=== PATIENT | male | born 1965 | race Caucasian/White ===

== ENCOUNTER 2016-11-26 17:11 | Inpatient (IN) | payer OTHER ==
[2016-11-26 19:49] VITALS: BP 148/69; PULSE 69; RESP 16; TEMP 97.6; O2SAT 99
--- NOTE | 2016-11-26 20:33 | PD ---
HPI Chief Complaint: Psychiatric Symptoms Time Seen by Provider: 20:33 Travel History International Travel<30 days: No Contact w/Intl Traveler<30days: No Traveled to known affect area: No History of Present Illness HPI 51-year-old male with history of epilepsy and hypertension, presents to the emergency department under a Goldman act for psychiatric evaluation. Per report, patient has been caring for his mother. He has been experiencing some financial difficulty. This has trickled into his work and his work has been less than adequate. He was written out and had a meeting today about this. Patient stated that he responded "don't fire me. I might as well just kill myself." This resulted in the patient being placed under a Goldman act. And asked if he is suicidal, the patient tells me if he does get fired he might as well just kill himself. States his mother will move out and he will lose everything. He denies any acute medical needs at this time. States that he takes his medication as directed. He has no other symptoms to report. PFSH Past Medical History Seizures: Yes Social History Alcohol Use: No Tobacco Use: No Substance Use: No Allergies-Medications (Allergen,Severity, Reaction): Coded Allergies: No Known Allergies (Unverified , 11/26/16) Review of Systems Except as stated in HPI: all other systems reviewed are Neg Physical Exam Narrative GENERAL: Obese male patient, tearful but in no acute distress SKIN: Focused skin assessment warm/dry. HEAD: Atraumatic. Normocephalic. EYES: Pupils equal and round. No scleral icterus. No injection or drainage. ENT: No nasal bleeding or discharge. Mucous membranes pink and moist. NECK: Trachea midline. No JVD. CARDIOVASCULAR: Regular rate and rhythm. No murmur appreciated. RESPIRATORY: No accessory muscle use. Clear to auscultation. Breath sounds equal bilaterally. GASTROINTESTINAL: Abdomen soft, non-tender, nondistended. Hepatic and splenic margins not palpable. MUSCULOSKELETAL: No obvious deformities. No clubbing. No cyanosis. No edema. NEUROLOGICAL: Awake and alert. No obvious cranial nerve deficits. Motor grossly within normal limits. Normal speech. Data Data Last Documented VS Vital Signs Date Time Temp Pulse Resp B/P Pulse Ox O2 Delivery O2 Flow Rate FiO2 11/26/16 19:49 97.6 69 16 148/69 99 Orders Complete Blood Count With Diff (11/26/16 19:43) Basic Metabolic Panel (Bmp) (11/26/16 19:43) Psych Screen (11/26/16 19:43) Drug Screen, Random Urine (11/26/16 19:43) Alcohol (Ethanol) (11/26/16 19:43) Phenytoin (Dilantin) (11/26/16 20:12) Lorazepam Inj (Ativan Inj) (11/26/16 20:45) MDM Medical Decision Making Medical Screen Exam Complete: Yes Emergency Medical Condition: Yes Medical Record Reviewed: Yes Differential Diagnosis Mood disorder versus personality disorder versus adjustment reaction disorder Narrative Course 51-year-old male presents to emergency department under Goldman act for psychiatric evaluation. Patient appears tearful but he is not in distress. His vital signs are stable. Patient does state that if he loses his job he might as well commit suicide. Pending No acute lab abnormality, patient is medically cleared to undergo psychiatric screening for further evaluation and disposition. Mental health screening discussed with the patient. Psychiatric screen ordered. Diagnosis Primary Impression: Adjustment disorder Qualified Code: F43.20 - Adjustment disorder, unspecified type Condition: Daily [place] November 26, 2016 20:33
[2016-11-26] MEDS ORDERED: LORazepam 2 MG/ML VIAL IM ONE (20:45)
[2016-11-26 20:56] VITALS: BP 162/85; PULSE 68; RESP 19; O2SAT 96
[2016-11-26 22:45] VITALS: BP 162/78; PULSE 69; RESP 18; O2SAT 98
[2016-11-26 23:11] LABS: AUTOMATED NEUTROPHIL # 5.8 TH/MM3 (1.8-7.7); BASOPHIL # 0.1 TH/MM3 (0-0.2); BASOPHIL % 1.3 % (0.0-2.0); EOSINOPHIL # 0.4 TH/MM3 (0-0.4); EOSINOPHIL % 4.8 % (0.0-4.0); HEMO FLAGS DIFF FINAL; LYMPH % 21.6 % (9.0-44.0); LYMPHOCYTE # 1.9 TH/MM3 (1.0-4.8); MEAN CELL VOLUME 88.1 FL (80.0-100.0); MEAN CORPUSCULAR HEMOGLOBIN 29.2 PG (27.0-34.0); MEAN CORPUSCULAR HGB CONC 33.1 % (32.0-36.0); MONO % 6.9 % (0.0-8.0); NEUT % 65.4 % (16.0-70.0); PLATELET COUNT 191 TH/MM3 (150-450); RED BLOOD COUNT 4.32 MIL/MM3 (4.50-5.90); RED CELL DISTRIBUTION WIDTH 13.9 % (11.6-17.2); WHITE BLOOD COUNT 8.9 TH/MM3 (4.0-11.0)
[2016-11-26 23:17] LABS: AMPHETAMINE, URINE NEG (NEG); BARBITURATES, URINE NEG (NEG); COCAINE, URINE NEG (NEG)
[2016-11-26 23:34] LABS: BICARBONATE 32.8 MEQ/L (21.0-32.0); BLOOD UREA NITROGEN 12 MG/DL (7-18); GLOMERULAR FILTRATION RATE 89 ML/MIN (>89)
[2016-11-26 23:41] LABS: ANION GAP 7 MEQ/L (5-15); CHLORIDE 102 MEQ/L (98-107); POTASSIUM 3.7 MEQ/L (3.5-5.1); SODIUM (NA) 142 MEQ/L (136-145)
[2016-11-27 02:22] VITALS: BP 160/79; PULSE 63; RESP 18; O2SAT 97
[2016-11-27 06:17] VITALS: BP 165/85; PULSE 65; RESP 19; TEMP 98.7; O2SAT 97
[2016-11-27] MEDS ORDERED: DILA100C PO (07:44)
[2016-11-27] MEDS ORDERED: PHENYTOIN SODIUM 100 MG CAP PO ONE (08:00)
--- NOTE | 2016-11-27 10:30 | PD ---
History of Present Illness Chief Complaint: Psychiatric Symptoms Time Seen by Provider: 09:50 Travel History International Travel<30 Days: No Contact w/Intl Traveler<30days: No Known affected area: No Legal Status Legal Status: Goldman Act Goldman Act Signed By: SUNNY MOREAU Goldman Act Comment: SUICIDAL STATEMENT History of Present Illness: History of Present Illness HPI 51-year-old single male with no previous psychiatric history who presents to the emergency department under a Goldman act for psychiatric evaluation. 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 he also stated " I would do something because my life wouldn't be worth living anymore". EMR is reviewed. no previous contact with [facility] psychiatry dept. Toxicology is negative. Patient is seen . He is alert, oriented male in hospital gown. Hygiene is poor. He appears tired. Speech is clear and logical, slowed at times. There is no psychosis and no basil. Mood is depressed with reported impaired sleep, decreased energy, anhedonia " I sometimes just sit in my room and do nothing", suicidal thoughts with no plan.These symptoms have been occurring for several months. He reports stressors including financial stressors as well as problems at his job. He relates that one week ago he was given a verbal warning from his recreation supervisor. Wednesday of this week he got another warning and a reprimand due to multiple complaints that he was not performing well at his his job. He was advised that he may be fired if his performance did not improve did not improve . Patient acknowledges he is concerned as well as fearful of his future. His mother has threatened to leave him and move away if he looses his job. Patient has no support outside of his mother. He is involved in his sikhism but tells me that he does not feel comfortable talking to anyone in his sikhism regarding his feelings or current situation. He is unable to provide any safety plan in the event that he were to be fired and is vague and ambivalent about formulating any such plan. When he is informed of my concerns adn my recommendation that he be admitted he becomes agitated and tells me " [place] and what do you care if I do anything to myself". PFSH Past Medical History Diminished Hearing: No Seizures: Yes Past Surgical History Surgical History: Unable to Obtain Abdominal Surgery: No Cardiac Surgery: No Ear Surgery: No Endocrine Surgery: No Eye Surgery: No Genitourinary Surgery: No Gynecologic Surgery: No Neurologic Surgery: No Oral Surgery: No Thoracic Surgery: No Other Surgery: No Psychiatric History Psychiatric History Hx Psychiatric Treatment: DENIES any History of Inpatient Treatment: No Guns or firearms in home: No Social History Singel male. Lives with his mother . Completed 11 grade. Has worked at middle school technology teacher x 14 years. Hx Alcohol Use: No Hx Tobacco Use: No Hx Substance Use: No Other Substances Used: DENIES Hx of Substance Use Treatment: No Family Psychiatric History negative Allergies-Medications (Allergen,Severity, Reaction): Coded Allergies: Phenobarbital (Verified Allergy, Severe, RASH, 11/26/16) Latex (Verified Allergy, Intermediate, Rash, 11/26/16) Reported Meds & Prescriptions Reported Meds & Active Scripts Active Reported Dilantin (Phenytoin Extended) 100 Mg Cap 500 Mg PO BID Review of Systems Constitutional: COMPLAINS OF: Weight gain Endocrine: DENIES: Heat/cold intolerance, Polydipsia, Polyuria, Polyphagia Eyes: DENIES: Blurred vision, Diplopia, Eye inflammation, Eye pain, Vision loss , Photosensitivity, Double Vision Ears, nose, mouth, throat: DENIES: Tinnitus, Hearing loss, Vertigo, Nasal discharge, Oral lesions, Throat pain, Hoarseness, Ear Pain, Running Nose, Epistaxis, Sinus Pain, Toothache, Odynophagia Respiratory: COMPLAINS OF: Shortness of breath Cardiovascular: COMPLAINS OF: Lower Extremity Edema Gastrointestinal: DENIES: Abdominal pain, Black stools, Bloody stools, Constipation, Diarrhea, Nausea, Vomiting, Difficulty Swallowing, Anorexia Genitourinary: DENIES: Sexual dysfunction, Urinary frequency, Urinary incontinence, Urgency, Hematuria, Dysuria, Nocturia, Penile Discharge, Testicular Pain, Testicular Swelling Musculoskeletal: COMPLAINS OF: Muscle aches Integumentary: DENIES: Abnormal pigmentation, Nail changes, Pruritus, Rash Hematologic/lymphatic: DENIES: Bruising, Lymphadenopathy Immunologic/allergic: DENIES: Eczema, Urticaria Neurologic: COMPLAINS OF: Seizures Psychiatric: COMPLAINS OF: Depression, Suicidal Ideation Exam Alert: Yes [place]: Person Mood: Agitated Affect: Tearful, Other (labile) Speech: Clear, Logical Eye Contact: Indirect Memory Intact: Comment (no impairmetn) Hallucinations: Other (neagtive) Delusions: No Delusion Type: Other (susopicious) Suicidal: Plan (no plan reported), Ideation Homicidal: Ideation (negative) Insight/Judgement Poor. Poor MDM Medical Decision Making Medical Record Reviewed: Yes Assessment/Plan 51 year old male with no previous psychiatric history under a BA after he made suicidal threats at work. Patient at this time is vague regarding intention to harm himself and continues to state that he doesn't know what he would do if he were to loose his job. He also is unable to formulate any safety plan, has no support at this time and is in fear that his mother will abandon him if he looses his job. Admit for further observation and evaluation, initiation of tx as well as to maintain safety. Orders Complete Blood Count With Diff (11/26/16 19:43) Basic Metabolic Panel (Bmp) (11/26/16 19:43) Psych Screen (11/26/16 19:43) Drug Screen, Random Urine (11/26/16 19:43) Alcohol (Ethanol) (11/26/16 19:43) Lorazepam Inj (Ativan Inj) (11/26/16 20:45) Phenytoin (Dilantin) (11/27/16 01:32) Diet Regular Basic (11/27/16 Breakfast) Phenytoin (Dilantin) (11/27/16 08:00) Results Vital Signs Date Time Temp Pulse Resp B/P Pulse Ox O2 Delivery O2 Flow Rate FiO2 11/27/16 06:17 98.7 65 19 165/85 97 Room Air 11/27/16 03:07 69 16 11/27/16 02:22 63 18 160/79 97 Room Air 11/26/16 22:45 69 18 162/78 98 Room Air 11/26/16 20:56 68 19 162/85 96 Nasal Cannula 11/26/16 19:49 97.6 69 16 148/69 99 Laboratory Tests Test 11/26/16 22:45 White Blood Count 8.9 Red Blood Count 4.32 Hemoglobin 12.6 Hematocrit 38.0 Mean Corpuscular Volume 88.1 Mean Corpuscular Hemoglobin 29.2 Mean Corpuscular Hemoglobin 33.1 Concent Red Cell Distribution Width 13.9 Platelet Count 191 Mean Platelet Volume 7.3 Neutrophils (%) (Auto) 65.4 Lymphocytes (%) (Auto) 21.6 Monocytes (%) (Auto) 6.9 Eosinophils (%) (Auto) 4.8 Basophils (%) (Auto) 1.3 Neutrophils # (Auto) 5.8 Lymphocytes # (Auto) 1.9 Monocytes # (Auto) 0.6 Eosinophils # (Auto) 0.4 Basophils # (Auto) 0.1 CBC Comment DIFF FINAL Differential Comment Sodium Level 142 Potassium Level 3.7 Chloride Level 102 Carbon Dioxide Level 32.8 Anion Gap 7 Blood Urea Nitrogen 12 Creatinine 0.90 Estimat Glomerular Filtration 89 Rate Random Glucose 112 Calcium Level 8.5 Urine Opiates Screen NEG Urine Barbiturates Screen NEG Urine Amphetamines Screen NEG Urine Benzodiazepines Screen NEG Urine Cocaine Screen NEG Urine Cannabinoids Screen NEG Ethyl Alcohol Level LESS THAN 3 Phenytoin (Dilantin) Level 11.6 Diagnosis Primary Impression: Adjustment disorder Admitting Information Admitting Physician Requests: Admit Condition: Stable Problem Qualifiers Primary Impression: Adjustment disorder Qualified Code: F43.21 - Adjustment disorder with depressed mood Sabine Conway November 27, 2016 10:30
[2016-11-27 11:00] VITALS: BP 142/70; PULSE 65; RESP 18
[2016-11-27] MEDS ORDERED: ACETAMINOPHEN 325 MG TAB PO PRN (11:00)
[2016-11-27] MEDS ORDERED: MAGNESIUM HYDROXIDE SUSP 30 ML CUP PO PRN (11:00)
[2016-11-27] MEDS ORDERED: LORazepam 2 MG TAB PO ONE (11:00)
[2016-11-27] MEDS ORDERED: ALUMINUM/MAGNESIUM/SIMETH 30 ML CUP PO PRN (11:00)
[2016-11-27 11:33] VITALS: BP 142/70; TEMP 98.1
[2016-11-27 11:52] VITALS: BP 170/92; PULSE 74; RESP 21; TEMP 97.4; O2SAT 96
[2016-11-27] MEDS: PHENYTOIN SODIUM 100 MG CAP PO SCH (20:42)
[2016-11-28 06:10] VITALS: BP 134/70; PULSE 64; RESP 17; TEMP 98.5; O2SAT 95
[2016-11-28] MEDS: PHENYTOIN SODIUM 100 MG CAP PO SCH ×2 (09:15→21:11)
--- NOTE | 2016-11-28 12:31 | HHI.HP ---
Provisional Diagnosis Admission Date November 27, 2016 at 11:04 Walker I. Adjustment disorder with depressed mood Certification of Person's Competence To Provide Express and Informed Consent I have personally examined Davi Morales , a person being served at [facility] on, November 28, 2016 12:24. Express and informed consent means consent voluntarily given in writing, by a competent person, after sufficient explanation and disclosure of the subject matter involved to enable the person to make a knowing and willful decision without any element of force, fraud, deceit, duress, or other form of constraint or coercion. This person is 18 years of age or older, is not now known to be incompetent to consent to treatment with a guardian advocate, and does not have a health care surrogate or proxy currently making medical treatment decisions. I have found this person to be one of the following: [X] Competent to provide express and informed consent, as defined above, for voluntary admission to this facility and is competent to provide express and informed consent for treatment. He/she has the consistent capacity to make well reasoned, willful, and knowing decisions concerning his or her medical or mental health treatment. The person fully and consistently understands the purpose of the admission for examination/placement and is fully capable of personally exercising all rights [place] Incompetent to provide express and informed consent to voluntary admission, and this is incompetent to provide express and informed consent to treatment. The person must be transferred to involuntary status and a petition for a guardian advocate filed with the Circuit Court. [] Refusing to provide express and informed consent to voluntary admission but is competent to provide express and informed consent for treatment. The person must be discharged or transferred to involuntary status. Form shall be completed within 24 hours of a person's arrival at the receiving facility and filed in the clinical record of each person: 1. Admitted on a voluntary basis 2. Permitted to provide express and informed consent to his/her own treatment 3. Allowed to transfer from involuntary to voluntary status 4. Prior to permitting a person to consent to his or her own treatment after having been previously found incompetent to consent to treatment. History of Present Illness Capacity: Has Capacity HPI 51-year-old male with no previous psychiatric history here at [facility], admitted for suicidal threats. Apparently the patient thought he was going to lose his job just before his admission and this sent him into a tailspin. Patient admits that he made suicidal threats and confirms he felt overwhelmed and indeed suicidal. However he is feeling better at this time because his employer has said that he is not in danger of imminently being terminated. 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 He lives with his mother. He is obviously somewhat slow to process information. In addition to the suicidal threats, the patient states he became acutely depressed, acutely anxious, feeling hopeless and helpless, and he was unable to sleep. He denies the use of alcohol or drugs. Review of Systems Except as stated in HPI: all other systems reviewed are Neg Past Psych History Psychological trauma history Denied Violence risk - others (6 mos) Minimal Violence risk - self (6 mos) Moderate Substance Abuse History Drugs/Alcohol past 12 months Denied Past Family Social History Coded Allergies: Phenobarbital (Verified Allergy, Severe, RASH, 11/26/16) Latex (Verified Allergy, Intermediate, Rash, 11/26/16) Reported Medications Phenytoin Extended (Dilantin)100 Mg [id number] Mg PO BID #90 CAP Ref 0 11/27/16 Current Medications Medications (Trade) Dose Ordered Sig/Tasha Route Start Time Stop Time Status Last Admin (Tylenol) 650 mg Q4H PRN PO 11/27/16 11:00 (Milk Of Magnesia Liq) 30 ml DAILY PRN PO 11/27/16 11:00 (Mag-Al Plus Susp Liq) 30 ml Q6H PRN PO 11/27/16 11:00 (Dilantin) 500 mg BID PO 11/27/16 21:00 11/28/16 09:15 Family History Positive for mood and anxiety disorders. Social History Lives with his mother. Not . Has no children. Denies alcohol and substance abuse. 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 Patient's Strengths (min. 2) Verbal and has a supportive mother. Physical Exam GENERAL: SKIN: Warm and dry. HEAD: Normocephalic. EYES: No scleral icterus. No injection or drainage. NECK: Supple, trachea midline. No JVD or lymphadenopathy. CARDIOVASCULAR: Regular rate and rhythm without murmurs, gallops, or rubs. RESPIRATORY: Breath sounds equal bilaterally. No accessory muscle use. GASTROINTESTINAL: Abdomen soft, non-tender, nondistended. MUSCULOSKELETAL: No cyanosis, or edema. BACK: Nontender without obvious deformity. No CVA tenderness. Vital Signs Vital Signs Date Time Temp Pulse Resp B/P Pulse Ox O2 Delivery O2 Flow Rate FiO2 11/28/16 06:10 98.5 64 17 134/70 95 11/27/16 11:00 Room Air I/O 11/27/16 11/27/16 11/28/16 08:00 16:00 00:00 Intake Total 320 ml Balance 320 ml Mental Status Examination Speech: Unremarkable Orientation: x3 Memory: Unremarkable Thought Process: Organized, Goal Directed Thought Content: Unremarkable Hallucination Type: None Attention and Concentration: Good Suicidal Ideation: Yes Previous Suicide Attempts: No Homicidal Ideation: No Previous Homicide Attempts: No Insight: Fair Judgment: WNL Affect: Anxious, Sad Mood: Sad, Anxious Motor Activity: Normal gait Assessment & Plan Problem List: (1) Adjustment disorder with depressed mood ICD Code: F43.21 Assessment & Plan Estimated LOS: 2-3 days days patient has moderate degree of lethality due to the lack of previous psychiatric history and his grave concern that he may be terminated. He is able to provide plans as to how he would harm himself but at this point states he would not do so. This physician feels it is important to monitor and evaluate him over the next 24 hours at least. Patient does not want an antidepressant. However he is also very obese and therefore starting him on medications and causing further aggravation of his obesity or heart condition could be very problematic. Therefore he will be asked to engage in therapies. This physician spoke to the patient's nurse regarding his recent behavior. This physician also spoke to the patient's watch caser to obtain more information from his mother. Hiram Hanson MD November 28, 2016 12:31
[2016-11-28 12:59] LABS: ANION GAP 7 MEQ/L (5-15); BICARBONATE 31.8 MEQ/L (21.0-32.0); BLOOD UREA NITROGEN 10 MG/DL (7-18); CHLORIDE 102 MEQ/L (98-107); GLOMERULAR FILTRATION RATE 110 ML/MIN (>89); HDL CHOLESTEROL 64.6 MG/DL (40.0-60.0); LDL CHOLESTEROL 102 MG/DL (0-99); POTASSIUM 3.8 MEQ/L (3.5-5.1); SODIUM (NA) 141 MEQ/L (136-145)
[2016-11-28 18:00] VITALS: BP 153/81; PULSE 64; RESP 17; TEMP 97.3; O2SAT 97
[2016-11-29 03:03] VITALS: BP 171/90; PULSE 18; RESP 18; TEMP 97; O2SAT 66
[2016-11-29 05:35] VITALS: BP 151/70; PULSE 63; RESP 16; TEMP 97.2; O2SAT 94
[2016-11-29] MEDS: PHENYTOIN SODIUM 100 MG CAP PO SCH (09:39)
[2016-11-29 12:38] LABS: HEMOGLOBIN A1a 0.6 %; HEMOGLOBIN A1b 1.4 %; HEMOGLOBIN Ao 86.8 %; HEMOGLOBIN LA1C 1.8 %; HEMOGLOBIN P3 3.4 %
== END 2016-11-29 14:20 | disposition home or self-care (01) | DRG 881 ==
LOC: NEDAMB 17:11 → NEDA 11-27 11:04 → H260 11-27 11:40
PROVIDERS: ADMIT Psychiatry & Neurology Psychiatry; ATTEND Psychiatry & Neurology Psychiatry
DX: F43.21 Adjustment disorder with depressed mood (principal); R45.851 Suicidal ideations; G40.909 Epilepsy, unspecified, not intractable, without status epilepticus; E66.9 Obesity, unspecified
CPT/HCPCS: 80048; 80061; 80185; 80307; 83036; 84443; 85025; 96372; J2060